=== PATIENT | female | born 1945 | race Hispanic/Latino ===

== ENCOUNTER 2018-03-11 14:37 | Emergency (ER) | payer MEDICARE ==
[~2018-03-11] VITALS: Ht 152.4 cm; Wt 88.5 kg
[2018-03-11] MEDS ORDERED: LIDOCAINE HCL 1% LOCAL INJ 20 ML VIAL INJ STA (14:43)
[2018-03-11] MEDS ORDERED: CLINDAMYCIN PHOS 600 MG/ 4 ML VIAL IM ONE (15:00)
[2018-03-11 16:36] VITALS: BP 121/59
== END 2018-03-11 16:48 | disposition home or self-care (01) ==
LOC: ER 14:37
DX: L02.213 Cutaneous abscess of chest wall (principal); I10 Essential (primary) hypertension
CPT/HCPCS: 10061; 87071; 87205; 99283; J2001

== ENCOUNTER 2018-12-14 13:22 | Emergency (ER) | payer MEDICARE ==
[~2018-12-14] VITALS: Ht 152.4 cm; Wt 88.5 kg
--- OUTSIDE RECORDS SUMMARY | 2018-12-14 13:25 | XMS REPORT | Clinical Summary ---
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 Active rosuvastatin (CRESTOR) 40 Take 40 mg by 0 MG tablet mouth daily. Active amlodipine-olmesartan Take 1 tablet 0 (SWAPNA) 10-20 mg per by mouth tablet daily. Active furosemide (LASIX) 40 MG Take 40 mg by 0 tablet mouth daily. Active amoxicillin (AMOXIL) 500 TAKE 4 1 MG capsule CAPSULES BY 8 MOUTH ONE HOUR PRIOR TO DENTAL PROCEDURE Active MIGUELINA-D 12 HOUR 60-120 TAKE 1 TABLET 3 mg per 12 hr tablet BY MOUTH 8 TWICE A DAY FOR 8 DAYS Active olopatadine (PAZEO) 0.7 % Apply 1 drop 2.5 mL 11 drops to eye daily. 8 Active cycloSPORINE (RESTASIS) Administer 1 180 mL 3 0.05 % ophthalmic drop to both 8 emulsion eyes 2 (two) times a day. 10/24/2018 vit Take 1 180 capsule 3 C,W-Ul-jhhxr-lutein-zeaxa capsule by 8 n [id number] mouth 2 (two) os-pisd-uy-mg capsule times a day. 06/19/2018 ibuprofen (ADVIL,MOTRIN) Take 1 tablet 56 tablet 0 600 MG tablet (600 mg 8 total) by mouth every 6 (six) hours as needed for mild pain for up to 14 days. 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; Degenerative drusen of both eyes 10/25/2018 Office Visit Ophthalmology Sebastián Garcias MD Lumbar back pain (Primary Dx); Osteoarthritis of lumbar spine, unspecified spinal osteoarthritis complication status 06/05/2018 Emergency Emergency Medicine after 12/13/2017 Social History Date Tobacco Use Types Packs/Day Years Used Never Smoker Smokeless Tobacco: Never Used Alcohol Use Drinks/Week oz/Week Comments No Sex Assigned at Date Recorded Not on file Industry Job Start Date Occupation Not on file Not on file Not on file Travel End Travel History Travel Start No recent travel history available. Last Filed Vital Signs Time Taken Vital Sign Reading 06/05/2018 1:53 PM CDT Blood Pressure 101/51 06/05/2018 1:53 PM CDT Pulse 75 06/05/2018 1:53 PM CDT Temperature 36.2 C (97.2 F) 06/05/2018 1:53 PM CDT Respiratory Rate 18 06/05/2018 1:53 PM CDT Oxygen Saturation 99% - Inhaled Oxygen - Concentration - Weight - 06/05/2018 1:57 PM CDT Height 149.9 cm (4' 11") - Body Mass Index - Plan of Treatment Health Maintenance Due Date Last Done Comments BREAST CANCER SCREENING 1996 COLON CANCER SCREENING 1996 SHINGLES VACCINES (#1) 1996 65+ PNEUMOCOCCAL VACCINE 2011 (1 of 2 - PCV13) PNEUMOCOCCAL 2011 POLYSACCHARIDE VACCINE AGE 65 AND OVER INFLUENZA VACCINE 03/28/2019 Implants Device Identifier Shelf Expiration Date Model / Serial / Lot Implanted Type Area Manufactur er 02/24/2026 [id number] / / [id number] Rosalba Johnson Ilok Fem-Lt 62.5 - IPM Left: Knee BIOMET, [id number] IMPLANT INC Implanted: Qty: 1 on 04/11/2016 by DEVICES Kobe Rock MD 09/28/2019 EP [id number] / / [id number] E-Poly Gradygutu As Tib Brng 14x71 - IPM Left: Knee BIOMET, [id number] IMPLANT INC Implanted: Qty: 1 on 04/11/2016 by DEVICES Kobe Rock MD 08/27/2019 [id number] / / [id number] Cement Bone R+G 1dose Palacos - Knee Joint Left: Knee MANNY [employer] [id number] Implants Implanted: Qty: 1 on 04/11/2016 by Kobe Rock MD 10/24/2025 [id number] / / [id number] Stem Tib Prim Finned [id number] Ascent Knee Joint Left: Knee BIOMET INC Maxim - [id number] Implants Implanted: Qty: 1 on 04/11/2016 by Koeb Rock MD 02/03/2021 [id number] / / [id number] Implant Ptlr Vanguard 3 Peg Series Knee Joint Left: Knee [employer] A Std 34x8.5mm - [id number] Implants Implanted: Qty: 1 on 04/11/2016 by Kobe Rock MD 12/13/2025 [id number] / / [id number] Tray Tib Prim 71mm Interlok - Knee Joint Left: Knee BI[employer]ET INC [id number] Implants Implanted: Qty: 1 on 04/11/2016 by Kobe Rock MD Procedures Comments Procedure Name Priority Date/Time Associated Diagnosis XR LUMBAR SPINE 2 OR 3 VW STAT 06/05/2018 5:09 PM CDT after 12/13/2017 Results * XR Lumbar Spine 2 Or 3 Vw (06/05/2018 5:09 PM CDT) Narrative Performed At EXAMINATION: XR LUMBAR SPINE 2 OR 3 VW [facility] CLINICAL HISTORY: Back painrisk factors (osteoporosis or chronic steroid use or elderly) COMPARISON:None IMPRESSION: 3 views of the lumbar spine are interpreted. Vertebral heights preserved. No displaced fracture is seen Moderate disc degenerative changes are noted at L2-3 and L4-5. Mild/moderate disc degenerative changes are noted at L3-4 and L5-S1. Lower lumbar facet arthrosis is noted. There is grade 1 anterolisthesis of L4 on L5. [facility]-[id number] Procedure Note Hm Interface, Radiology Results Incoming - 06/05/2018 5:15 PM CDT EXAMINATION: XR LUMBAR SPINE 2 OR 3 VW CLINICAL HISTORY: Back pain risk factors (osteoporosis or chronic steroid use or elderly) COMPARISON: None IMPRESSION: 3 views of the lumbar spine are interpreted. Vertebral heights preserved. No displaced fracture is seen Moderate disc degenerative changes are noted at L2-3 and L4-5. Mild/moderate disc degenerative changes are noted at L3-4 and L5-S1. Lower lumbar facet arthrosis is noted. There is grade 1 anterolisthesis of L4 on L5. [facility]-[id number] Performing Organization Address City/State/Zipcode Phone Number [facility] [address] [place] [address] after 12/13/2017 Insurance Payer Benefit Subscriber ID Type Phone Address Plan / Group [facility] MEDICARE AARP xxxxxxxxx O MEDICARE COMPLETE MCR Advance Directives Patient has advance care planning documents on file. For more information, sandra prince contact: Venkata Webster [address] [place] [address]
[2018-12-14] MEDS ORDERED: ASPIRIN 81 MG CHEW TAB PO ONE (13:45)
--- NOTE | 2018-12-14 14:41 | Diagnostic Imaging Report ---
EXAMINATION: CHEST 2 VIEWS INDICATION: Cough. Chest pain ^COUGH, CHEST PAIN WITH COUGHING ^[id number] ^[id number] COMPARISON: None FINDINGS: TUBES and LINES: None. LUNGS: Lungs are well inflated. Perihilar peribronchial hazy opacity could be due to bronchitis. There is no evidence of pneumonia or pulmonary edema. PLEURA: No pleural effusion or pneumothorax. HEART AND MEDIASTINUM: The cardiomediastinal silhouette is unremarkable. BONES AND SOFT TISSUES: No acute osseous lesion. Soft tissues are unremarkable. UPPER ABDOMEN: No free air under the diaphragm. IMPRESSION: Perihilar peribronchial hazy opacity could be due to bronchitis. Signed by: Dr. Torres Woodruff M.D. on 12/14/2018 2:38 PM
[2018-12-14 15:04] LABS: BASOPHILS % 0.4 % (0.0-1.0); EOSINOPHILS # (AUTO) 0.2 (0.0-0.4); EOSINOPHILS % 2.6 % (0.0-6.0); HEMATOCRIT 36.4 % (34.2-44.1); HEMOGLOBIN 11.5 g/dL (12.0-16.0); LYMPHOCYTES # (AUTO) 1.6 (1.0-3.2); LYMPHOCYTES % 21.6 % (18.0-39.1); MEAN CORPUSCULAR HEMOGLOBIN 27.8 pg (28-32); MEAN CORPUSCULAR HGB CONC 31.6 g/dL (31-35); MEAN CORPUSCULAR VOLUME 88.1 fL (81-99); MONOCYTES # (AUTO) 1.4 (0.2-0.8); MONOCYTES % 18.9 % (4.4-11.3); NEUTROPHILS # (AUTO) 4.1 (2.1-6.9); NEUTROPHILS % 56.2 % (38.7-80.0); PLATELET COUNT 287 x10e3/uL (140-360); RED BLOOD COUNT 4.13 x10e6/uL (3.6-5.1); RED CELL DISTRIBUTION WIDTH 15.9 % (11.7-14.4)
[2018-12-14] MEDS ORDERED: PREDNISONE20 MG PO (15:11)
[2018-12-14] MEDS ORDERED: LEVAQUIN500 MG PO (15:11)
[2018-12-14 15:13] LABS: CLARITY,URINE CLEAR (CLEAR); COLOR,URINE YELLOW (YELLOW)
[2018-12-14 15:14] LABS: BILIRUBIN,URINE NEGATIVE (NEGATIVE); KETONES,URINE NEGATIVE (NEGATIVE); LEUKOCYTE ESTERASE ,URINE NEGATIVE (NEGATIVE); NITRITE,URINE NEGATIVE (NEGATIVE); PROTEIN,URINE DIPSTICK 1+ (NEGATIVE); URINE UROBILINOGEN 0.2 mg/dL (0.2 - 1)
[2018-12-14 15:18] LABS: ALBUMIN/GLOBULIN RATIO 0.7 (0.8-2.0); ANION GAP 16.4 mmol/L (8-16); CALCIUM 9.1 mg/dL (8.4-10.2); CREATININE, SERUM 1.43 mg/dL (0.57-1.11); INR 0.96; PARTIAL THROMBOPLASTIN TIME 31.1 seconds (23.8-35.5); POTASSIUM 3.4 mmol/L (3.5-5.1); PROTHROMBIN TIME 13.3 seconds (11.9-14.5)
[2018-12-14 15:22] LABS: EPITHELIAL CELLS,URINE MODERATE /LPF
[2018-12-14 15:23] LABS: RBC,URINE 0-5 /HPF (0-5)
[2018-12-14 15:24] LABS: BACTERIA,URINE RARE /HPF
[2018-12-14 15:25] LABS: CREATINE KINASE MB 1.8 ng/mL (0-5.0)
[2018-12-14] MEDS ORDERED: TYLENOL WITH C1 EACH PO (15:32)
[2018-12-14] MEDS ORDERED: PROAIR HFA INH8.5 GM INH (15:32)
[2018-12-14 17:17] LABS: EOSINOPHILS % (MANUAL) 3 % (0-7); LYMPHOCYTES % (MANUAL) 15 % (19-48); MONOCYTES % (MANUAL) 11 % (3.4-9.0); NEUTROPHILS % (MANUAL) 69 % (40-74)
[2018-12-14 17:20] LABS: PLATELET ESTIMATE ADEQUATE; PLATELET MORPHOLOGY COMMENT NORMAL; RBC MORPHOLOGY COMMENT NORMAL
== END 2018-12-14 16:56 | disposition home or self-care (01) ==
LOC: ER 13:22
DX: J20.9 Acute bronchitis, unspecified (principal); I10 Essential (primary) hypertension
CPT/HCPCS: 36415; 71046; 80053; 81001; 82550; 82553; 83880; 84484; 85025; 85610; 85730; 93005; 99284

== ENCOUNTER 2018-12-25 13:26 | Emergency (ER) | payer MEDICARE ==
[~2018-12-25] VITALS: Ht 152.4 cm; Wt 88.5 kg
[~2018-12-25 13:26] MED LIST: LEVAQUIN500 MG PO; PREDNISONE20 MG PO; PROAIR HFA INH8.5 GM INH; TYLENOL WITH C1 EACH PO
--- OUTSIDE RECORDS SUMMARY | 2018-12-25 13:29 | XMS REPORT ---
Author [facility] Address Unknown Phone Unavailable Care Team Providers Care Booking Agent Name Role Phone Ruba NOWAK Unavailable Unavailable Problems This patient has no known problems. Allergies, Adverse Reactions, Alerts This patient has no known allergies or adverse reactions. Medications This patient has no known medications. Results Test Description Test Time Test Comments Text Results Atomic Results Result Comments CHEST 2 VIEWS 2018-12-14 14:37:00 [place] [address] Patient Name: ZORAIDA KLEIN MR #: [id number] : 1945 Age/Sex: 73/F Req #: [id number] Adm Physician: Ordered by: MEREDITH ARRIETA NP Report #: [id number] Location: ER Room/Bed: Procedure: [id number] DX/CHEST 2 VIEWS Exam Date: 12/14/18 Exam Time: 1421 REPORT STATUS: Signed EXAMINATION: CHEST 2 VIEWS INDICATION: Cough. Chest pain COUGH, CHEST PAIN WITH COUGHING [id number] COMPARISON: None FINDINGS: TUBES and LINES: None. LUNGS: Lungs are well inflated. Perihilar peribronchial hazy opacity could be due to bronchitis. There is no evidence of pneumonia or pulmonary edema. PLEURA: No pleural effusion or pneumothorax. HEART AND MEDIASTINUM: The cardiomediastinal silhouette is unremarkable. BONES AND SOFT TISSUES: No acute osseous lesion. Soft tissues are unremarkable. UPPER ABDOMEN: No free air under the diaphragm. IMPRESSION: Perihilar peribronchial hazy opacity could be due to bronchitis. Signed by: Dr. Torres Woodruff M.D. on 12/14/2018 2:38 PM Dictated By: TORRES WOODRUFF MD, MD 1438 Transcribed By: STEPHANE on 12/14/18 1438 COPY TO: MEREDITH ARRIETA NP
--- OUTSIDE RECORDS SUMMARY | 2018-12-25 13:29 | XMS REPORT | Clinical Summary ---
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 06/19/2018 ibuprofen (ADVIL,MOTRIN) [...] complication status 06/05/2018 Emergency Emergency Medicine after 12/24/2017 Social History Date Tobacco Use Types Packs/Day [...] Lot Implanted Type Area Manufactur er 02/24/2026 [id number] / / [id number] Rosalba Johnson Ilok Fem-Lt 62.5 - IPM Left: Knee BIOMET, [id number] IMPLANT INC Implanted: Qty: 1 on 04/11/2016 by DEVICES Kobe Rock MD 09/28/2019 EP [id number] / / [id number] E-Poly Gradygutu As Tib Brng 14x71 - IPM Left: Knee BIOMET, [id number] IMPLANT INC Implanted: Qty: 1 on 04/11/2016 by DEVICES Kobe Rock MD 08/27/2019 [id number] / / [id number] Cement Bone R+G 1dose Palacos - Knee Joint Left: Knee [employer] [id number] Implants Implanted: Qty: 1 on 04/11/2016 by Kobe Rock MD 10/24/2025 [id number] / / [id number] Stem Tib Prim Finned [id number] Ascent Knee Joint Left: Knee BIOMET INC Maxim - [id number] Implants Implanted: Qty: 1 on 04/11/2016 by Kobe Rock MD 02/03/2021 [id number] / / [id number] Implant Ptlr Vanguard 3 Peg Series Knee Joint Left: Knee BIOMET INC A Std 34x8.5mm - [id number] Implants Implanted: Qty: 1 on 04/11/2016 by Kobe Rock MD 12/13/2025 [id number] / / [id number] Tray Tib Prim 71mm Interlok - Knee Joint Left: Knee BIOMET INC [id number] Implants Implanted: Qty: 1 on 04/11/2016 by Kobe Rock MD Procedures Comments Procedure Name Priority Date/Time Associated Diagnosis XR LUMBAR SPINE 2 OR 3 VW STAT 06/05/2018 5:09 PM CDT after 12/24/2017 Results * XR Lumbar Spine 2 Or [...] grade 1 anterolisthesis of L4 on L5. [id number] Procedure Note Hm Interface, Radiology Results Incoming [...] grade 1 anterolisthesis of L4 on L5. [id number] Performing Organization Address City/State/Zipcode Phone Number [facility] [address] [place] [address] after 12/24/2017 Insurance Payer Benefit Subscriber ID Type Phone Address Plan / Group [facility] MEDICARE AARP xxxxxxxxx O MEDICARE COMPLETE MCR Advance Directives Patient has advance care planning documents on file. For more information, sandra prince contact: Venkata Webster [address] [place] [address]
[2018-12-25 13:58] LABS: BASOPHILS % 0.4 % (0.0-1.0); EOSINOPHILS # (AUTO) 0.1 (0.0-0.4); EOSINOPHILS % 1.1 % (0.0-6.0); HEMATOCRIT 35.7 % (34.2-44.1); HEMOGLOBIN 11.4 g/dL (12.0-16.0); LYMPHOCYTES # (AUTO) 1.4 (1.0-3.2); LYMPHOCYTES % 16.5 % (18.0-39.1); MEAN CORPUSCULAR HEMOGLOBIN 27.3 pg (28-32); MEAN CORPUSCULAR HGB CONC 31.9 g/dL (31-35); MEAN CORPUSCULAR VOLUME 85.6 fL (81-99); MONOCYTES # (AUTO) 0.9 (0.2-0.8); MONOCYTES % 11.1 % (4.4-11.3); NEUTROPHILS # (AUTO) 5.9 (2.1-6.9); NEUTROPHILS % 70.3 % (38.7-80.0); PLATELET COUNT 276 x10e3/uL (140-360); RED BLOOD COUNT 4.17 x10e6/uL (3.6-5.1); RED CELL DISTRIBUTION WIDTH 16.1 % (11.7-14.4)
[2018-12-25 14:15] LABS: ALANINE AMINOTRANSFERASE 17 IU/L (0-55); ALBUMIN 2.9 g/dL (3.5-5.0); ALBUMIN/GLOBULIN RATIO 0.8 (0.8-2.0); ALKALINE PHOSPHATASE 82 IU/L (40-150); ANION GAP 12.5 mmol/L (8-16); BLOOD UREA NITROGEN 25 mg/dL (7-26); BUN/CREATININE RATIO 16 (6-25); CALCIUM 8.9 mg/dL (8.4-10.2); CARBON DIOXIDE 24 mmol/L (22-29); CHLORIDE 102 mmol/L (98-107); CREATINE KINASE 156 IU/L (29-168); EST GLOMERULAR FILTRATION RATE 32 ML/MIN (60-); GLUCOSE 102 mg/dL (74-118); MAGNESIUM 2.1 MG/DL (1.3-2.1); POTASSIUM 3.5 mmol/L (3.5-5.1); SODIUM 135 mmol/L (136-145)
[2018-12-25 15:17] LABS: BILIRUBIN,URINE NEGATIVE (NEGATIVE); CLARITY,URINE SL CLOUDY (CLEAR); COLOR,URINE YELLOW (YELLOW); KETONES,URINE NEGATIVE (NEGATIVE); LEUKOCYTE ESTERASE ,URINE TRACE (NEGATIVE); NITRITE,URINE NEGATIVE (NEGATIVE); PROTEIN,URINE DIPSTICK TRACE (NEGATIVE); URINE UROBILINOGEN 0.2 mg/dL (0.2 - 1)
[2018-12-25 15:29] LABS: BACTERIA,URINE FEW /HPF; EPITHELIAL CELLS,URINE FEW /LPF; HYALINE CASTS 0-1 (0-1); RBC,URINE 0-5 /HPF (0-5); WBC,URINE (MAN) 0-5 /HPF (0-5)
--- NOTE | 2018-12-25 15:32 | Diagnostic Imaging Report ---
EXAMINATION: CHEST 2 VIEWS INDICATION: Cough, evaluate for pneumonia. COMPARISON: Chest radiograph 12/14/2018. FINDINGS: TUBES and LINES: None. LUNGS: Lungs are well inflated. There is no evidence of lobar pneumonia or pulmonary edema. There is mild bronchial wall thickening. There is focal nodular patchy opacity in the right mid lung laterally. Minimal patchy left basilar opacity, likely atelectasis. PLEURA: No pleural effusion or pneumothorax. HEART AND MEDIASTINUM: The cardiomediastinal silhouette is unremarkable. There are atherosclerotic calcifications within the aorta. BONES AND SOFT TISSUES: No acute osseous abnormality. UPPER ABDOMEN: No free air under the diaphragm. IMPRESSION: No evidence of lobar pneumonia. Mild bronchial wall thickening, suggestive of bronchitis in this patient with cough. Mild nodular patchy opacity in the right midlung may be infectious or inflammatory. Recommend follow-up chest radiograph in 6-8 weeks to assess for resolution. Signed by: Dr. Negro Graham MD on 12/25/2018 3:27 PM
== END 2018-12-25 16:43 | disposition home or self-care (01) ==
LOC: ER 13:26
DX: J20.9 Acute bronchitis, unspecified (principal); J30.1 Allergic rhinitis due to pollen; E78.5 Hyperlipidemia, unspecified; K21.9 Gastro-esophageal reflux disease without esophagitis; I12.9 Hypertensive chronic kidney disease with stage 1 through stage 4 chronic kidney disease, or unspecified chronic kidney disease; N18.9 Chronic kidney disease, unspecified; Z94.0 Kidney transplant status; Z82.49 Family history of ischemic heart disease and other diseases of the circulatory system
CPT/HCPCS: 36415; 71046; 80053; 81001; 82550; 82553; 83735; 83880; 84484; 85025; 87086; 99284

== ENCOUNTER 2021-02-20 12:23 | Emergency (ER) | payer MEDICARE, OTHER ==
[~2021-02-20] VITALS: Ht 152.4 cm; Wt 88.5 kg
[2021-02-20] MEDS ORDERED: TETANUS/DIPHTHERIA TOX ADULT 0.5 ML SYR ONE (12:59)
[2021-02-20] MEDS ORDERED: TETANUS/DIPHTHERIA TOX ADULT 0.5 ML SYR IM ONE (13:00)
== END 2021-02-20 14:45 | disposition home or self-care (01) ==
LOC: ER 13:12
DX: S01.01XA Laceration without foreign body of scalp, initial encounter (principal); S60.512A Abrasion of left hand, initial encounter; S80.02XA Contusion of left knee, initial encounter; S70.12XA Contusion of left thigh, initial encounter; W01.198A Fall on same level from slipping, tripping and stumbling with subsequent striking against other object, initial encounter; Y93.01 Activity, walking, marching and hiking; Y92.008 Other place in unspecified non-institutional (private) residence as the place of occurrence of the external cause
CPT/HCPCS: 70450; 72125; 90471; 90714; 99283